=== PATIENT | female | born 1945 | race Caucasian/White ===

== ENCOUNTER 2025-08-28 14:21 | Outpatient (AMB) | payer MEDICARE, SELFPAY ==
--- NOTE | 2025-08-28 15:16 | AM.OFFWIN_ITS ---
Intake Vital Signs 08/28/25 15:17 Height 4 ft 9 in Weight 104 lb BMI 22.5 BP 190/78 H Blood Pressure Location Lt brachial Position Sitting Pulse 50 Pulse Source Pulse Oximeter Temp 98.0 F Temp Source Oral Pulse Oximetry (%) 98 Oxygen Delivery Method Room Air Comment High BP: states pcp is still working on regulating. provider notified Intake Visit Reasons: ARCHITECT IN TRAINING-part of hearing aid stuck in lt ear Intake Note: pt presents with hearing aid piece stuck in LT ear for about a week now Allergies Calcium Channel Blocking Agent Dilt Adverse Reaction (Intermediate, Verified 08/28/25 15:22) tachycardia, palpitation Do you need a note to return to daycare/school/sports/work: No HPI HPI Comments History of Present Illness Details History of Present Illness - The patient is an 79-year-old female w ho presents for removal of a foreign body from her ear. - She states that the top of her hearing aid has been missing for approximately one week. - Her attempted to locate the ob ject without success. - She was subsequently evaluated at a [facility] where she bought the hearing aids and referred to this clinic for removal of the foreign body. - The patient denies any associated pain , fever, or hearing loss. Physical Exam General: Cooperative, healthy appearing, comfortable, no acute distress and well developed Orientation: Patient oriented x3 Limitations: No limitations Ears: Hearing grossly normal bilaterally, foreign body noted in the left ear canal. No tragus tenderness noted. No mastoid tenderness noted. Neck: Normal visual inspection and Yes full ROM. No lymphadenopathy noted. Respiratory: Normal respiratory effort and able to speak in complete sentences. Clear to auscultation bilaterally. No w/r/g noted. Cardiovascular: Regular rate and rhythm. Normal S1 and S2. No m/r/r noted. Patient was informed and verbally consented to the use of an ambient scribe for clinic note documentation during this visit. Review of Systems Const All systems reviewed & are unremarkable except as noted in HPI and below Physical Exam Vital Signs: Last Vital Signs Temp 98.0 F 08/28/25 15:17 Pulse 50 08/28/25 15:17 Pulse Ox 98 08/28/25 15:17 Oxygen Delivery Method Room Air 08/28/25 15:17 BMI result Body Mass Index 22.5 Office Procedures Office Procedure Misc Details: FB removed from the left ear with alligator clamps. Procedure was well tolerated. No complications. Ear canal was clear Office Procedure Billing Code: AMB Procedure Billing Code Assessment & Plan Assessment & Plan (1) Foreign body of ear, left: Code(s): T16.2XXA - Foreign body in left ear, initial encounter Qualifiers: Encounter type: initial encounter Qualified Code(s): T16.2XXA - Foreign body in left ear, initial encounter Plan Most likely Foreign Body In Ear plan - The patient had a removal of the foreign body in the office - pt tolerated it well - follow up with her PCP Orders: Orders AMB Office Procedure Misc Today T16.9XXA - Foreign body in ear, unspecified ear, initial encounter Coding Level of Care Code Est Pt Level 3 (51282) Diagnoses Foreign body of left ear, initial encounter T16.2XXA Encounter type: initial encounter CPT Codes Office Procedure - Office Procedure Billing Code: AMB Procedure Billing Code ([id number])
[2025-08-28 15:17] VITALS: BP 190/78; PULSE 50; TEMP 36.7; O2SAT 98; BMI 22.5
--- OUTSIDE RECORDS SUMMARY | 2025-08-28 20:44 | XMS_ITS | Clinical Summary ---
Author Organization [facility] [address] [facility] Address [address] [place] [address] Phone Care Team Providers Care General Road Foreman Name Role Phone Nimesh Cano MD Primary Care Provider [phone] Allergies No known active allergies Medications metoprolol tartrate (LOPRESSOR) 100 mg tablet 09/22/2024 Active atorvastatin (LIPITOR) 10 mg tablet 09/22/2024 Active Eliquis 2.5 mg tablet Take 1 tablet (2.5 mg total) by mouth 2 (two) times a day. 09/18/2024 Active dicyclomine (BENTYL) 10 mg capsule 09/26/2024 Active lisinopril (PRINIVIL,ZESTR IL) 40 mg tablet Take 1 tablet (40 mg total) by mouth 1 (one) time each day. Active chlorthalidone (HYGROTON) 25 mg tablet Take by mouth 1 (one) time each day. Active hydrALAZINE (APRESOLINE) 50 mg tablet Take by mouth. Active flecainide (TAMBOCOR) 150 mg tablet Take by mouth. Active dicyclomine (BENTYL) 10 mg capsuleIndicati ons:Irritable bowel syndrome with diarrhea Take 1 capsule (10 mg total) by mouth 3 (three) times a day. 270 each 3 09/28/2024 6 Active Active Problems Problem Noted Date Diagnosed Date Irritable bowel syndrome with diarrhea 5 Assessment & Plan (09/28/2024 4:27 PM EST): Orders: dicyclomine (BENTYL) 10 mg capsule; Take 1 capsule (10 mg total) by mouth 3 (three) times a day. HTN (hypertension) 09/28/2024 Depression 09/28/2024 Anxiety 09/28/2024 Hyperlipidemia 09/28/2024 A-fib 09/28/2024 Arthritis 09/28/2024 Surgical History Surgery Date Site/Laterality Comments CHOLECYSTECTOMY APPENDECTOMY COLONOSCOPY 05/15/2016 - 06/13/2016 8 yr ESOPHAGOGASTRODUODENOSCOPY 10/15/2010 - 11/11/2010 COLONOSCOPY 03/14/2011 - 04/13/2011 Social History Tobacco Use Types Packs/Day Years Used Date Smoking Tobacco: Never Tobacco Cessation:Counseling Given: Not Answered Alcohol Use Standard Drinks/Week Comments Yes 0 (1 standard drink = 0.6 oz pur e alcohol) Comments Unknown Sex and Gender Information Value Date Recorded Sex Assigned at Not on file Legal Sex Female 4:13 PM EST Gender Identity Not on file Sexual Orientation Not on file Last Filed Vital Signs Vital Sign Reading Time Taken Comments Blood Pressure - - Pulse - - Temperature - - Respiratory Rate - - Oxygen Saturation - - Inhaled Oxygen Concentration - - Weight 51.7 kg (114 lb) 09/28/2024 3:33 PM EST Height 144.8 cm (4' 9 ) 09/28/2024 3:33 PM EST Body Mass Index 24.67 09/28/2024 3:33 PM EST Plan of Treatment Health Maintenance Due Date Last Done Comments DTaP,Tdap,and Td Vaccines (1 - Tdap) 1964 Pneumococcal Vaccine: 50+ Years (1 of 2 - PCV) 1964 Zoster Vaccines (1 of 2) 1964 Cholesterol Screening (Lipid Panel) 08/13/2022 Falls Risk Assessment 08/13/2022 Medicare Annual Wellness Visit 08/13/2022 Osteoporosis Screening (Bone Density Screening) 08/13/2022 Social Influencers of Health Screening 08/13/2022 Depression Screening 09/14/2024 Hypertension/CHF/CAD Annual BMP Blood Test 09/28/2024 COVID-19 Vaccine ( season) 2025 07/16/2023, 07/30/2022, 06/12/2021, Additional history exists Influenza Vaccine (#1) 2025 , 06/06/2023, 06/23/2022, Additional history exists RSV Immunization Adult Patients Completed 09/17/2023 HIB Vaccines Aged Out No longer eligi ble based on patient's age to complete this topic HPV Vaccines Aged Out No longer eligi ble based on patient's age to complete this topic Hepatitis A Vaccines Aged Out No long er eligible based on patient's age to complete this topic Hepatitis B Vaccines Aged Out No long er eligible based on patient's age to complete this topic IPV Vaccines Aged Out No longer eligi ble based on patient's age to complete this topic MMR Vaccines Aged Out No longer eligi ble based on patient's age to complete this topic Meningococcal ACWY Vaccine Aged Out N o longer eligible based on patient's age to complete this topic Meningococcal B Vaccine Aged Out No l onger eligible based on patient's age to complete this topic RSV Immunization Patients Under 20 months Aged Out No longer eligible based on patient's age to complete this topic Varicella Vaccines Aged Out No longer eligible based on patient's age to complete this topic Insurance MEDICARE [facility] Care Teams General Road Foreman Relationship Specialty Start Date End Date Nimesh Cano MD [address] [place] [address] PCP - General Internal Medicine 09/26/24
--- OUTSIDE RECORDS SUMMARY | 2025-08-28 20:44 | XMS_ITS | Patient Health Record ---
Author Organization [facility] Jaxon torrez Billing Info Address [address] [place] [address] [place] [address] Phone [phone] Care Team Providers Care Deburring Machine Operator Name Role Phone DESHAUN PAREDES DO Unavailable Ronen Hickey Unavailable Unavailable Reason For Referral No Information Medications Medication SIG (Take, Route, Frequency, Duration) Notes Start Date End Date Diagnosis (ICD Code) Status Flecainide Acetate 150 MG Tablet 1 tablet as needed Orally Once a day Paroxysmal atria l fibrillation (ICD_10 - I48.0) Active Rawlins 3-6-9 Fatty Acids - Tablet Chewable as directed Orally Dyslipidemia (ICD_10 - E78.5) Active Eliquis 2.5 MG Tablet 1 tablet Orally Twice a day Paroxysmal atria l fibrillation (ICD_10 - I48.0) Active Lisinopril 40 MG Tablet 1 tablet Orally Once a day Essential hypertension (ICD_10 - I10) Active Probiotic 250 MG Capsule 1 capsule Orally Once a day Active Escitalopram Oxalate 5 MG Tablet 1 tablet Orally Once a day; Duration: 30 day(s) Active Omeprazole 40 MG Capsule Delayed Release 1 capsule 30 minutes before morning meal Orally Once a day; Duration: 30 day(s) Active Biotin 800 MCG Tablet 1 tablet Orally Once a day; Duration: 30 day(s) Active Glucosamine HCl 500 MG Tablet as directed Orally Twice a day Active Chlorthalidone 25 MG Tablet 1 tablet in the morning with food Orally Once a day Essential hypertension (ICD_10 - I10) Active Dicyclomine HCl 10 MG Capsule 1 capsule Orally Three times a day as needed Active Atorvastatin Calcium 10 MG Tablet 1 tablet Orally Once a day Dyslipidemia (ICD_10 - E78.5) Active Vitamin C 500 MG Tablet Chewable 1 tablet Orally Once a day; Duration: 30 day(s) Active Metoprolol Tartrate 100 MG Tablet 1 tablet with food Orally Twice a day Paroxysmal atria l fibrillation (ICD_10 - I48.0) Active HydrALAZINE HCl 25 MG Tablet 1 tablet with food Orally Three times a day Essential hypertension (ICD_10 - I10) Active Fish Oil 1000 MG Capsule 2 capsules Orally Once a day Dyslipidemia (ICD_10 - E78.5) Active Calcium Carb-Cholecalciferol 600-800 MG-UNIT Tablet 1 tablet with a meal Orally Once a day; Duration: 30 day(s) Active Immunizations Status Vaccine Route Administration Date Visit Date Comments Administered FLU (Past vaccine of unknown type) Unknown 06/29/2019 Social History Sex Observation Social History Observation Description Sex Observation Female Sexual Orientation Social History Observation Description Sexual Orientation Straight or heterose xual Gender Identity Social History Observation Description Gender Identity Female Social History Social History Social Info Question Answer Notes Tobacco Status: Patient is a non tobacco user Alcohol Use: Patient uses alcohol occasional Additional Details Category Social Info Options Details Social History Exercise: walking, stre tching Caffeine: none Marital Status: Problems Problem Type SNOMED Code ICD Code Dates Problem Status W/U Status Risk Notes Problem Paroxysmal atrial fibrillation (617582210) Paroxysmal atrial fibrillation (I48.0) Added On:12/12 Active confirmed Problem Essential hypertension (81195581) Essential hypertension (I10) Added On:12/12 Active confirmed Problem Dyslipidemia (908713723) Dyslipidemia (E78.5) Added On:12/12 Active confirmed Problem Gastroesophageal reflux disease (disorder) (821758395) Chronic GERD (K21.9) Added On:12/12 Active confirmed Plan Of Treatment Future Test Test Name Order Date LIPID PANEL (16602) 12/26/2020 Vitamin D 25-Hydroxy(63803) 12/26/2020 ALT (SGPT) 12/26/2020 AST (SGOT) 12/26/2020 Basic Metabolic Panel (8) 12/26/2020 CBC, Platelet; No Differential Magnesium, Serum 12/26/2020 TSH + Free T4 12/26/2020 Insurance Providers Payer Name Payer Address Payer Phone Subscriber Number Group Number Insured Name Patient Relationship to Insured Coverage Start Date Coverage End Date MEDICARE [place] PART B [address] [facility] MARINA HARLEY [id number] Marianne Fisher Self - patient is the insured [facility] MEDIC[facility] /187 [address] [facility] [id number] Marianne Fisher Self - patient is the insured Medical (General) History Surgical History Surgery Date(Month/Year) appendectomy 1955 gall bladder removed 1985 thumb surgery 2005 cataracts & implants 2017 basal cell carcinomas 2019 Hospitalization History Reason Date(Month/Year) chest pain- [facility] 11/11/2019 high HR- [facility] 07/2019 high BP- [facility] 08/2019
== END 2025-08-28 16:05 | disposition home or self-care (01) ==
PROVIDERS: PCP Internal Medicine; Visit Provider Physician Assistant Medical
DX: T16.2XXA Foreign body in left ear, initial encounter (principal)

== ENCOUNTER → 2025-08-28 14:21 | Outpatient (BNVA) | payer MEDICARE, SELFPAY | PROVIDERS: PCP Internal Medicine; Visit Provider Physician Assistant Medical | DX: T16.2XXA Foreign body in left ear, initial encounter (principal) | CPT/HCPCS: 69200; 99212 ==